=== PATIENT | male | born 1985 | race Two or more races ===

== ENCOUNTER 2024-05-02 20:31 | Emergency (ER) | payer OTHER ==
[2024-05-02 20:48] VITALS: O2SAT 100
--- NOTE | 2024-05-02 21:15 | ED Physician Documentation ---
History of Present Illness - Stated complaint Stated Complaint: - Chief complaint Chief Complaint: Wound - Additonal information Additional information: Patient is a 39-year-old male presenting to the emergency department with rash to the head of his penis. Patient recently was on Augmentin for otitis media. Notes symptoms started just today after finishing 10-day course of Augmentin. He notes no difficulty peeing no difficulty or swelling around the head of his penis. He denies any pain or irritation to it. He denies being recently sexually active no new partners. Patient denies any discharge from the wounds or from penile head PD PAST MEDICAL HISTORY - Past Medical History Past Medical History: Yes Endocrine/Autoimmune: HyPOthyroidism Musculoskeletal: Gout - Past Surgical History Past Surgical History: No - Present Medications Home Medications: Ambulatory Orders Medication Instructions Recorded Confirmed Clotrimazole 1% Cream [Lotrimin 1% 15 gm TP BID 7 Days #1 ml 05/02/24 Cream] Levothyroxine Sodium [Synthroid] 25 mcg PO DAILY 05/02/24 05/02/24 allopurinoL [Allopurinol] 500 mg PO DAILY 05/02/24 05/02/24 - Allergies Allergies/Adverse Reactions: Allergies Allergy/AdvReac Type Severity Reaction Status Date / Time No Known Drug Allergies Allergy Verified 05/02/24 20:46 - Social History Does the pt smoke?: No Smoking Status: Never smoker Does the pt drink ETOH?: No Does the pt have substance abuse?: No - Immunizations Immunizations are current?: Yes - POLST Patient has POLST: No PD ED PE NORMAL - Vitals Vital signs reviewed: Yes - General General: Alert and oriented X 3 - HEENT HEENT: Atraumatic - Neck Neck: Supple, no meningeal sign - Cardiac Cardiac: RRR, No murmur - Respiratory Respiratory: No respiratory distress, Clear bilaterally - Abdomen Abdomen: Normal bowel sounds - Male 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 No significant tenderness no lesions or vesicles to penile head mild erythema no appreciable discharge from urethra. No palpable inguinal lymphadenopathy), Other - Derm Derm: Normal color - Extremities Extremities: No deformity - Neuro Neuro: Alert and oriented X 3 - Psych Psych: Normal mood Results - Vitals Vitals: Vital Signs - 24 hr 05/02/24 20:41 Temperature 36.8 C Heart Rate 72 Respiratory 18 Rate Blood Pressure 174/91 H O2 Saturation 100 Oxygen O2 Source Room air - Labs Labs: Laboratory Tests 05/02/24 21:34 Urine Color YELLOW Urine Clarity CLEAR Urine pH 6.[address] [place] 1.020 Urine Protein NEGATIVE Urine Glucose (UA) NEGATIVE Urine Ketones NEGATIVE Urine Occult Blood NEGATIVE Urine Nitrite NEGATIVE Urine Bilirubin NEGATIVE Urine Urobilinogen 0.2 (NORMAL) Ur Leukocyte Esterase NEGATIVE Ur Microscopic Review NOT INDICATED Urine Culture Comments NOT INDICATED PD Medical Decision Making - ED course Complexity details: reviewed old records, reviewed results ED course: Patient is a 39-year-old female who presents to new rash that started today on head of penis. He notes he finished a 10-day course of Augmentin yesterday and symptoms started today he denies any pain no erythema or specific vesicles. He denies any difficulty peeing or dysuria symptoms no fevers or chills associated with his rash today. Vital stable on arrival. Mild erythema and swelling noted to penile head no signs of phimosis or paraphimosis. No pain on examination. No testicular swelling no palpable inguinal lymphadenopathy appreciated. 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 Given findings on physical exam concern for balanitis with recent antibiotic use. Will give short course of clotrimazole cream and instructed patient to keep area clean dry and to ensure no development of phimosis. Makeda's urine Reassuring here in the emergency department no signs of UTI Departure - Departure Disposition: 01 Home, Self Care Clinical Impression: Balanitis Condition: Good Prescriptions: Clotrimazole 1% Cream [Lotrimin 1% Cream] 15 gm TP BID 7 Days #1 ml Comments: Your work up here in the ED shows symptoms of balanitis. You should make sure to pull back the foreskin daily to ensure it does not get obstructed. Apply cream and keep area clean and dry. I have ordered a urine sample to ensure findings of yeast infection however I will call you on the results in the outpatient setting. Forms: PCP List
[2024-05-02 21:40] LABS: BILIRUBIN,URINE NEGATIVE (NEGATIVE); GLUCOSE, URINE (UA) NEGATIVE (NEGATIVE); KETONES,URINE (UA) NEGATIVE (NEGATIVE); LEUKOCYTE ESTERASE, URINE NEGATIVE (NEGATIVE); NITRITE,URINE NEGATIVE (NEGATIVE); OCCULT BLOOD,URINE NEGATIVE (NEGATIVE); PROTEIN,URINE NEGATIVE (NEGATIVE); UROBILINOGEN,URINE 0.2 (NORMAL) E.U./dL (NORMAL)
[2024-05-02 21:42] LABS: CLARITY,URINE CLEAR (CLEAR)
[2024-05-02 21:58] VITALS: BP 140/88
== END 2024-05-02 21:54 | disposition home or self-care (01) ==
LOC: ED 20:31
DX: N48.1 Balanitis (principal)
CPT/HCPCS: 81001; 81003; 87086; 99282; 99283